=== PATIENT | male | born 1960 | race Caucasian/White ===

== ENCOUNTER 2019-09-05 08:39 | Day surgery (SDC) | payer BC ==
[~2019-09-05] VITALS: Ht 162.6 cm; Wt 69.9 kg
[2019-09-05 09:10] VITALS: BP 139/90
[2019-09-05] MEDS ORDERED: LACTATED RINGERS 1,000 ML IV SCH (09:21)
[2019-09-05] MEDS ORDERED: METO25TA35 PO (09:24)
[2019-09-05] MEDS ORDERED: ENAL20TA PO (09:24)
[2019-09-05] MEDS ORDERED: HYDR25TA6 PO (09:24)
[2019-09-05] MEDS ORDERED: AMLO10TA8 PO (09:24)
[2019-09-05] MEDS ORDERED: SIMV10TA18 PO (09:24)
[2019-09-05] MEDS ORDERED: LIDOCAINE-MPF 1%, 2ML INFIL ONE (09:30)
[2019-09-05] MEDS ORDERED: CHLORHEXIDINE 15 ML UDC MM ONE (09:30)
[2019-09-05] MEDS ORDERED: MIDAZOLAM 1 MG/ML, 2ML ONE (10:27)
[2019-09-05] MEDS ORDERED: FENTANYL PF 100 MCG/2ML ONE (10:27)
[2019-09-05] MEDS ORDERED: PROPOFOL 10 MG/ML, 20ML ONE (11:16)
[2019-09-05] MEDS ORDERED: CEFAZOLIN 1,000 MG ONE (11:16)
[2019-09-05] MEDS ORDERED: DEXAMETHASONE 4 MG/ML, 1ML ONE (11:16)
[2019-09-05] MEDS ORDERED: ONDANSETRON 2MG/ML, 2ML ONE (11:16)
[2019-09-05] MEDS ORDERED: OXYcodone 5 MG/5 ML ORAL.SOL UDC PO PRN (12:00)
[2019-09-05] MEDS ORDERED: ACETAMINOPHEN 325 MG TABLET PO PRN (12:00)
[2019-09-05] MEDS ORDERED: MEPERIDINE/PF 25MG/0.5ML IVPush PRN (12:00)
[2019-09-05] MEDS ORDERED: ONDANSETRON 2MG/ML, 2ML IVPush PRN (12:00)
[2019-09-05] MEDS ORDERED: DIAZEPAM 5 MG/ML, 2ML IVPush PRN (12:00)
[2019-09-05] MEDS ORDERED: FENTANYL PF 100 MCG/2ML IV PRN (12:00)
== END 2019-09-05 13:50 | disposition home or self-care (01) ==
LOC: OUT 08:39
PROVIDERS: ATTEND Student in an Organized Health Care Education/Training Program
DX: N32.89 Other specified disorders of bladder (principal); Z11.59 Encounter for screening for other viral diseases; N30.90 Cystitis, unspecified without hematuria; Z85.51 Personal history of malignant neoplasm of bladder; Z79.899 Other long term (current) drug therapy; Z72.89 Other problems related to lifestyle
CPT/HCPCS: 36415; 52235; 87635; 88305; J0690; J1100; J2250; J2405; J2704; J3010; J7120

== ENCOUNTER 2020-06-11 05:46 | Day surgery (SDC) | payer BC ==
[2020-06-02 09:49] VITALS: BP 144/91
[~2020-06-11] VITALS: Ht 162.6 cm; Wt 69.7 kg
[~2020-06-11 05:46] MED LIST: AMLO-211 PO; ENAL20TA9 PO; HYDR25TA6 PO; METO25TA35 PO; SIMV10TA18 PO
[2020-06-11] MEDS ORDERED: CHLORHEXIDINE 15 ML UDC ONE (06:43)
[2020-06-11] MEDS ORDERED: LACTATED RINGERS 1,000 ML IV SCH (07:00)
[2020-06-11] MEDS ORDERED: CHLORHEXIDINE 15 ML UDC PO ONE (07:00)
[2020-06-11] MEDS ORDERED: ASPI81TA45 PO (07:08)
[2020-06-11 07:09] VITALS: BP 144/91
[2020-06-11] MEDS ORDERED: MIDAZOLAM 1 MG/ML, 2ML ONE (07:11)
[2020-06-11] MEDS ORDERED: FENTANYL PF 250 MCG/5ML ONE (07:11)
[2020-06-11 07:23] LABS: PROTHROMBIN TIME 10.7 Seconds (9.6-11.5)
[2020-06-11] MEDS ORDERED: GEMCITABINE HCL 2,000 MG in SODIUM CHLORIDE 0.9% 100 ML IS ONE (07:30)
[2020-06-11] MEDS ORDERED: GEMCITABINE HCL 2,000 MG in SODIUM CHLORIDE 0.9% 80 ML IS ONE (07:30)
[2020-06-11] MEDS ORDERED: PROMETHAZINE 25 MG/ML, 1ML IV PRN (08:00)
[2020-06-11] MEDS ORDERED: ALBUTEROL SULFATE 2.5 MG/3 ML NPPB PRN (08:00)
[2020-06-11] MEDS ORDERED: OXYcodone 5 MG/5 ML ORAL.SOL UDC PO PRN (08:00)
[2020-06-11] MEDS ORDERED: FENTANYL PF 100 MCG/2ML IV PRN (08:00)
[2020-06-11] MEDS ORDERED: LABETALOL 5MG/ML, 20ML IV PRN (08:00)
[2020-06-11] MEDS ORDERED: DIAZEPAM 5 MG/ML, 2ML IV PRN ×2 (08:00)
[2020-06-11] MEDS ORDERED: KETOROLAC 30 MG/1 ML IV PRN (08:00)
[2020-06-11] MEDS ORDERED: ONDANSETRON 2MG/ML, 2ML IVPush PRN (08:00)
[2020-06-11] MEDS ORDERED: METOCLOPRAMIDE 5 MG/ML, 2ML IV PRN (08:00)
[2020-06-11] MEDS ORDERED: HYDROmorphone 1 MG/ML, 1ML INJ IV PRN (08:00)
[2020-06-11] MEDS ORDERED: hydrALAzine 20 MG/ML, 1ML IV PRN (08:00)
[2020-06-11] MEDS ORDERED: GEMCITABINE HCL IS ONE (08:00)
[2020-06-11] MEDS ORDERED: MEPERIDINE/PF 25MG/0.5ML IVPush PRN (08:00)
[2020-06-11] MEDS ORDERED: DEXAMETHASONE 4 MG/ML, 1ML ONE (10:20)
[2020-06-11] MEDS ORDERED: ONDANSETRON 2MG/ML, 2ML ONE (10:20)
[2020-06-11] MEDS ORDERED: PROPOFOL 10 MG/ML, 20ML ONE (10:20)
[2020-06-11] MEDS ORDERED: ROCURONIUM 10MG/ML,5ML ONE (10:20)
[2020-06-11] MEDS ORDERED: CEFAZOLIN 1,000 MG ONE (10:20)
[2020-06-11] MEDS ORDERED: SUCCINYLCHOLINE 20 MG/ML, 10ML ONE (10:20)
== END 2020-06-11 11:30 | disposition home or self-care (01) ==
LOC: OUT 05:46
PROVIDERS: ATTEND Student in an Organized Health Care Education/Training Program
DX: N32.89 Other specified disorders of bladder (principal); N30.20 Other chronic cystitis without hematuria; I10 Essential (primary) hypertension; Z79.899 Other long term (current) drug therapy; Z85.51 Personal history of malignant neoplasm of bladder; Z87.891 Personal history of nicotine dependence
CPT/HCPCS: 36415; 51720; 52204; 85610; 88305; 93005; J2250; J3010; J9201; J0690; J1100; J2405; J2704; J0330